=== PATIENT | female | born 1995 | race Caucasian/White ===

== ENCOUNTER 2020-01-21 06:14 | Emergency (ER) | payer MEDICAID, OTHER ==
[~2020-01-21] VITALS: Ht 175.3 cm; Wt 59.1 kg
[2020-01-21 07:00] LABS: URINE HCG NEGATIVE (NEG)
[2020-01-21 07:13] LABS: CLARITY,URINE CLOUDY (Clear); COLOR,URINE YELLOW (Yellow); GLUCOSE, URINE NEGATIVE (Neg); KETONES,URINE NEGATIVE (Neg); LEUKOCYTE ESTERASE ,URINE LARGE (Neg); NITRITES, URINE NEGATIVE (Neg); OCCULT BLOOD,URINE SMALL (Neg); PROTEIN,URINE TRACE mg/dl (Neg); UROBILINOGEN,URINE 0.2 E.U/dL (0.2-1.0)
[2020-01-21 07:21] LABS: UA COLLECTION TYPE CLN CATCH MIDSTREAM
[2020-01-21 07:22] LABS: BACTERIA,URINE 2+ /HPF (Neg); MUCUS STRANDS FEW /LPF (Neg); RBC,URINE 0-2 /HPF (0-2); SQUAMOUS EPITHELIAL CELL,UR FEW /LPF (FEW)
[2020-01-21] MEDS ORDERED: cephalexin 500mg capsule PO ONE (08:20)
[2020-01-21] MEDS ORDERED: phenazopyridine 100mg tablet PO ONE (08:20)
[2020-01-21] MEDS ORDERED: PHEN-824 PO (08:21)
[2020-01-21] MEDS ORDERED: CEPH250T PO (08:21)
[2020-01-21 09:04] VITALS: BP 128/87
== END 2020-01-21 09:05 | disposition home or self-care (01) ==
LOC: ER 06:15
DX: N39.0 Urinary tract infection, site not specified (principal); F32.9 Major depressive disorder, single episode, unspecified; F17.200 Nicotine dependence, unspecified, uncomplicated; Z79.2 Long term (current) use of antibiotics; Z79.899 Other long term (current) drug therapy
CPT/HCPCS: 81001; 81025; 87088; 99283